=== PATIENT | male | born 1985 | race Caucasian/White ===

== ENCOUNTER 2016-10-20 06:39 | Inpatient (IN) | payer BC, OTHER ==
[~2016-10-20] VITALS: Ht 172.7 cm; Wt 93.0 kg
--- NOTE | 2016-10-20 06:53 | NUR ---
Pt to room with c/o neck stiffness, pressure headache, fever, and chills. Pt resting in position of comfort for self. Resp even and unlabored. MD at bedside. Awaiting further orders.
[2016-10-20] MEDS ORDERED: IV NORMAL SALINE 1000 ML BAG IV ONE (07:00)
[2016-10-20] MEDS ORDERED: ACETAMINOPHEN 325 MG TABLET PO ONE (07:00)
[2016-10-20] MEDS ORDERED: MIDAZOLAM HCL 2 MG/2 ML VIAL IV ONE (07:00)
[2016-10-20] MEDS ORDERED: KETOROLAC TROMETHAMINE 15 MG INJ IVP ONE (07:00)
[2016-10-20] MEDS ORDERED: MIDAZOLAM HCL 2 MG/2 ML VIAL ONE (07:14)
[2016-10-20] MEDS ORDERED: KETOROLAC TROMETHAMINE 15 MG INJ ONE (07:14)
[2016-10-20] MEDS ORDERED: ACETAMINOPHEN ES 500 MG TABLET ONE (07:14)
--- NOTE | 2016-10-20 07:15 | NUR ---
IV established, labs drawn and sent. Pt medicated for discomfort. Report given to GERDA Arango. I relinquish care of pt at this time.
[2016-10-20 07:20] LABS: BASOPHILS % (AUTO) 0.6 % (0.0-2.0); EOSINOPHILS # (AUTO) 0.2 K/uL (0.0-0.7); EOSINOPHILS % (AUTO) 2.8 % (0.0-7.0); HEMATOCRIT 46.6 % (40-50); HEMOGLOBIN 15.9 G/DL (14.0-18.0); LYMPHOCYTES # (AUTO) 0.8 K/UL (0.8-4.8); LYMPHOCYTES % (AUTO) 14.2 % (20.5-51.5); MEAN CORPUSCULAR HEMOGLOBIN 30.1 UUG (27.0-31.0); MEAN CORPUSCULAR HGB CONC 34 g/dL (32.0-37.0); MEAN CORPUSCULAR VOLUME 87.8 FL (82.0-92.0); MONOCYTES # (AUTO) 0.5 K/UL (0.1-1.30); MONOCYTES % (AUTO) 9.2 % (0.0-11.0); NEUTROPHILS # (AUTO) 4.2 K/UL (1.8-8.9); NEUTROPHILS % (AUTO) 73.2 % (38.5-71.5); PLATELET COUNT (AUTO) 283 K/UL (150-450); WHITE BLOOD COUNT (AUTO) 5.7 K/UL (4.0-11.2)
--- NOTE | 2016-10-20 07:27 | NUR ---
Pt left ER for CT.
[2016-10-20 07:31] LABS: CREATININE 1.1 mg/dL (0.6-1.3); POTASSIUM 3.7 mmol/L (3.5-5.1)
[2016-10-20 07:37] LABS: BILIRUBIN,DIRECT 0.1 mg/dL (0.0-0.2); BILIRUBIN,TOTAL 0.6 mg/dL (0.2-1.0); TOTAL PROTEIN, SERUM 7.4 g/dL (6.4-8.2)
--- NOTE | 2016-10-20 07:45 | NUR ---
Pt signed consent for LP.
[2016-10-20] MEDS ORDERED: LIDOCAINE HCL 1% 20 ML VIAL ONE (08:08)
--- NOTE | 2016-10-20 08:11 | NUR ---
LP performed by , collected CSF sent to lab. Pt tolorated well.
[2016-10-20] MEDS ORDERED: LIDOCAINE HCL 1% 20 ML VIAL IJ ONE (09:15)
[2016-10-20] MEDS ORDERED: CEFTRIAXONE 2 G in IV DEXTROSE 5% 100 ML IV ONE (09:30)
[2016-10-20] MEDS ORDERED: CEFTRIAXONE 1 G VIAL ONE (09:37)
[2016-10-20 10:14] LABS: *BILIRUBIN,URIN NEGATIVE (NEGATIVE); *BLOOD, URINE 2+ (NEGATIVE); *CLARITY,URINE CLEAR (CLEAR); *COLOR,URINE YELLOW (YELLOW); *KETONES,URINE NEGATIVE (NEGATIVE); *PROTEIN,URINE 1+ (NEGATIVE); LEUKOCYTE ESTERASE ,URINE NEGATIVE (NEGATIVE); NITRITE, URINE NEGATIVE (NEGATIVE); UGLUCOSE NEGATIVE (NEGATIVE)
[2016-10-20 10:24] LABS: BACTERIA,URINE NONE SEEN /HPF (NONE SEEN); SQUAMOUS EPITHELIAL CELL,UR FEW /HPF (NONE SEEN); WBC,URINE 0-3 /HPF (0-3)
[2016-10-20 11:00] VITALS: BP 123/70
--- NOTE | 2016-10-20 12:30 | NUR ---
ADMISSION PROTOCOL FOLLOWED, PT RESTING IN BED, DENIES PAIN AND STATES NECK STIFFNESS IS ALWAYS PRESENT HOWEVER IT IS NOT THE SAME THIS TIME. MD AWARE OF PT ARRIVAL, DIET ORDER RECEIVED. CALL LIGHT IN REACH, DROPLET ISOLATION MAINTAINED, WILL CONTINUE TO MONITOR CLOSELY
[2016-10-20] MEDS ORDERED: KETOROLAC TROMETHAMINE 15 MG INJ IVP PRN (16:00)
[2016-10-20] MEDS ORDERED: ACETAMINOPHEN 325 MG TABLET PO PRN (16:00)
[2016-10-20] MEDS ORDERED: ONDANSETRON 4 MG/2 ML VIAL IV PRN (16:00)
[2016-10-20 16:13] VITALS: BP 129/81
[2016-10-20] MEDS ORDERED: CEFTRIAXONE 2 G VIAL IM SCH (17:00)
--- NOTE | 2016-10-20 17:12 | NUR ---
Clinical Pharmacy Note: Vancomycin Dosing per Pharmacy Subjective: Vancomycin IV to start on this 31 y/o male for R/O meningitis Objective: BUN 11 Scr 1.1 WBC 5.7 Temperature 98.3 ht 5' 8'' wt 205 lb Assessment/Plan: Will start vancomycin 1500mg IVPB q12h for predicted vancomycin trough level 16 mcg/ml at steady state. 1st dose today at 1800. Plan to draw vancomycin trough level before 4th dose ( level not yet ordered). Will monitor renal function & adjust the dose if needed. Will follow daily.
[2016-10-20] MEDS ORDERED: CEPH-570 PO (17:28)
[2016-10-20] MEDS ORDERED: VANCOMYCIN IV 1,500 MG in IV DEXTROSE 5% 500 ML IV SCH (18:00)
--- NOTE | 2016-10-20 19:25 | NUR ---
PT LEFT AMA. PT AND MOTHER VERY FRUSTRATED. PT SAID THAT [employer] DID NOT COME BACK WHEN SHE SAID SHE WOULD, ALSO UPSET BECAUSE DIETARY DID NOT SEND DINNER TRAY AND HAD TO WAIT AN HOUR FOR DINNER, PT SAID HE WANTS TO SLEEP IN OWN BED AND NOT BE WOKEN UP EVERY HOUR. I WAS VERY APOLOGETIC OF HIS CIRCUMSTANCES AND ADVISED THE PT OF THE RISK TO LEAVING. DR COBB MADE AWARE AND WENT TO SPEAK TO PATIENT. EVEN AFTER DR COBB SPOKE WITH PATIENT AND MOTHER, PT STILL WANTS TO LEAVE AGAINST MEDICAL ADVICE. PT IV WAS REMOVED WITH NO REDNESS OR IRRITATION NOTED AND ID BANDS WERE REMOVED.
[2016-10-20] MEDS ORDERED: CEFTRIAXONE 2 G in IV DEXTROSE 5% 100 ML IV SCH (21:00)
[2016-10-20] MEDS ORDERED: ACYCLOVIR IV 1,000 MG in IV DEXTROSE 5% 250 ML IV SCH (22:00)
[2016-10-21] MEDS ORDERED: PANTOPRAZOLE SODIUM 40 MG TABLET.DR PO SCH (07:00)
== END 2016-10-20 19:10 | disposition left against medical advice (07) | DRG 75 ==
LOC: ER 06:39 → MED 10:08
PROVIDERS: ADMIT Internal Medicine; ATTEND Internal Medicine
PROC: 009U3ZX Drainage of Spinal Canal, Percutaneous Approach, Diagnostic (ICD-10-PCS; principal; 2016-10-20)
DX: A87.9 Viral meningitis, unspecified (principal); E87.2 Acidosis; E66.9 Obesity, unspecified; Z68.31 Body mass index [BMI] 31.0-31.9, adult; R31.21 Asymptomatic microscopic hematuria
CPT/HCPCS: 36415; 70450; 71010; 83605; 84157; 85025; 85730; 87040; 87205; 87806; 89051; A4663; J0133; J0696; J1885; J2250; J3370; J3490; J7030; J7040; J7060